=== PATIENT | female | born 1945 ===

== ENCOUNTER 2022-07-04 16:57 | Emergency (ER) | payer MEDICARE, OTHER ==
[~2022-07-04] VITALS: Ht 152.4 cm; Wt 63.5 kg
[2022-07-04] MEDS ORDERED: HYDHCL25 PO (17:20)
[2022-07-04] MEDS ORDERED: DILTIAZEM 12HR120 M9 PO (17:20)
[2022-07-04] MEDS ORDERED: ATOR10 PO (17:20)
[2022-07-04] MEDS ORDERED: IPRAT-ALBUT 0.5-3 ML INH (17:21)
[2022-07-04] MEDS ORDERED: ERGO50000 PO (17:22)
[2022-07-04] MEDS ORDERED: ALBU90OI INH ×2 (17:22→20:59)
[2022-07-04 18:36] LABS: BASOPHILS ABSOLUTE AUTO 0.04 K/mm3 (0.00-0.23); BASOPHILS PERCENT AUTO 1 % (0-2); EOSINOPHILS ABSOLUTE AUTO 0.27 K/mm3 (0.00-0.68); EOSINOPHILS PERCENT AUTO 4 % (0-6); Hematocrit 35.6 % (33.0-51.0); Hemoglobin 10.9 g/dL (11.5-16.0); IMMATURE GRAN ABSOLUTE AUTO 0.02 K/mm3 (0.00-0.10); IMMATURE GRAN PERCENT AUTO 0 % (0-1); LYMPHOCYTES ABSOLUTE AUTO 1.46 K/mm3 (0.84-5.20); LYMPHOCYTES PERCENT AUTO 19 % (21-46); MONOCYTES ABSOLUTE AUTO 1.07 K/mm3 (0.16-1.47); MONOCYTES PERCENT AUTO 14 % (4-13); Mean Corpuscular HGB 26.5 pg (26.0-34.0); Mean Corpuscular HGB Conc 30.6 g/dL (31.5-36.5); Mean Corpuscular Volume 87 fL (80-100); Mean Platelet Volume 9.1 fL (9.1-12.4); NEUTROPHILS PERCENT AUTO 62 % (41-73); Platelet Count 464 K/mm3 (150-400); RDW Coefficient Variation 15.3 % (11.7-14.2); RDW Standard Deviation 48.8 fL (35.1-46.3); Red Blood Cell Count 4.11 M/mm3 (3.80-5.20); White Blood Cell Count 7.56 K/mm3 (4.00-11.30)
[2022-07-04 19:35] LABS: Albumin, Blood 2.9 g/dL (3.4-5.0); Albumin/Globulin Ratio 0.6 (0.8-1.8); Bilirubin, Total 0.3 mg/dL (0.1-1.0); Bun/Creatinine Ratio 19.5 (12.0-20.0); Calcium, Blood 9.8 mg/dL (8.5-10.1); Creatinine, Blood 1.13 mg/dL (0.40-1.00); Globulin, Blood 4.7 g/dL (2.2-4.0); Potassium, Blood 4.2 mmol/L (3.5-5.5); Total Protein, Blood 7.6 g/dL (6.4-8.2)
[2022-07-04] MEDS ORDERED: Pepcid20 MG PO (20:59)
[2022-07-04] MEDS ORDERED: Vibramycin100 MG PO (20:59)
== END 2022-07-04 21:42 | disposition home or self-care (01) ==
LOC: ER 16:57
PROVIDERS: Emergency Medicine
DX: J44.1 Chronic obstructive pulmonary disease with (acute) exacerbation (principal); R07.9 Chest pain, unspecified; Z99.81 Dependence on supplemental oxygen; I12.9 Hypertensive chronic kidney disease with stage 1 through stage 4 chronic kidney disease, or unspecified chronic kidney disease; N18.9 Chronic kidney disease, unspecified; E78.5 Hyperlipidemia, unspecified; Z87.891 Personal history of nicotine dependence; Z88.6 Allergy status to analgesic agent; Z88.5 Allergy status to narcotic agent; Z79.899 Other long term (current) drug therapy
CPT/HCPCS: 71045; 80053; 83880; 84484; 85025; 93005; 93010; 94640; 94664; 99284-25; A9270

== ENCOUNTER 2023-03-25 17:33 | Inpatient (IN) | payer MEDICARE, OTHER ==
[~2023-03-25] VITALS: Ht 152.4 cm; Wt 64.8 kg
[~2023-03-25 17:33] MED LIST: ALBU90OI INH; ATOR10 PO; DILTIAZEM 12HR120 M9 PO; ERGO50000 PO; HYDHCL25 PO; IPRAT-ALBUT 0.5-3 ML INH; Pepcid20 MG PO; Vibramycin100 MG PO
[2023-03-25 19:46] VITALS: BP 90/74
[2023-03-25 20:58] LABS: BASOPHILS ABSOLUTE AUTO 0.05 K/mm3 (0.00-0.23); BASOPHILS PERCENT AUTO 1 % (0-2); EOSINOPHILS ABSOLUTE AUTO 0.28 K/mm3 (0.00-0.68); EOSINOPHILS PERCENT AUTO 4 % (0-6); Hemoglobin 9.7 g/dL (11.5-16.0); IMMATURE GRAN ABSOLUTE AUTO 0.03 K/mm3 (0.00-0.10); IMMATURE GRAN PERCENT AUTO 0 % (0-1); LYMPHOCYTES ABSOLUTE AUTO 1.23 K/mm3 (0.84-5.20); LYMPHOCYTES PERCENT AUTO 16 % (21-46); MONOCYTES ABSOLUTE AUTO 0.95 K/mm3 (0.16-1.47); MONOCYTES PERCENT AUTO 12 % (4-13); Mean Corpuscular HGB 26.4 pg (26.0-34.0); Mean Corpuscular HGB Conc 31.3 g/dL (31.5-36.5); Mean Corpuscular Volume 84 fL (80-100); Mean Platelet Volume 10.4 fL (9.1-12.4); NEUTROPHILS ABSOLUTE AUTO 5.18 K/mm3 (1.96-9.15); NEUTROPHILS PERCENT AUTO 67 % (41-73); Platelet Count 295 K/mm3 (150-400); RDW Coefficient Variation 13.4 % (11.7-14.2); Red Blood Cell Count 3.68 M/mm3 (3.80-5.20); White Blood Cell Count 7.72 K/mm3 (4.00-11.30)
[2023-03-25 21:19] LABS: Albumin, Blood 2.9 g/dL (3.4-5.0); Albumin/Globulin Ratio 0.7 (0.8-1.8); Bilirubin, Total 0.9 mg/dL (0.1-1.0); Bun/Creatinine Ratio 14.6 (12.0-20.0); Calcium, Blood 9.3 mg/dL (8.5-10.1); Creatinine, Blood 3.01 mg/dL (0.40-1.00); Globulin, Blood 4.3 g/dL (2.2-4.0); Potassium, Blood 3.6 mmol/L (3.5-5.5); Total Protein, Blood 7.2 g/dL (6.4-8.2)
[2023-03-25 21:31] LABS: Bicarbonate Venous 36.3 mmol/L (24.0-30.0); PCO2 Venous 50.5 mmHg (38-42); pH Blood Venous 7.48 (7.34-7.37)
[2023-03-25 21:58] VITALS: BP 109/46
[2023-03-26 04:56] VITALS: BP 140/74
[2023-03-26 06:14] LABS: Source, Urine Clean Catch
--- NOTE | 2023-03-26 06:18 | NUR ---
RECIEVED PATIENT ALERT, ORIENTED TO SELF, FROM MEDICAL FLOOR ONTO THE SCU DUE TO BEHAVIORAL ISSUES. PATIENT CONTINUED TO YELL "HELP" THROUGHOUT THE NIGHT, ALTHOUGH WOULD PAUSE TO ANSWER THE BEST SHE COULD FOR ADMISSION QUESTIONS. NO MEDICATION INFORMATION WAS OBTAINED. PATIENT PULLED OFF NC, DESATURATES TO LOW 70'S AND TAKES A FEW MINUTES TO REBOUND, ON 4.5L. PATIENT THEN GOT VERY AGITATED AND STARTED SWINGING AT STAFF, TRYING TO GET OUT OF BED, AND PULLING LINES. MD GAVE ORDER FOR 1 MG ATIVAN NOW, AND Q4 THEREAFTER, WITH SPECIFIC ORDERS OF OK TO ADMINISTER FIRST Q4 DOSE IF FIRST DID NOT GIVE RESULTS. 2MG ATIVAN ADMINISTERED OVER 2 HOURS. PATIENT THEN RESTED WELL FOR THE NEXT FEW HOURS. PATIENT HAD PURWICK BUT WAS RETAINING, BLADDER SCAN SHOWED 567, MD GAVE ORDER TO STAIGHT CATH ONCE WITH 650 OUT. WILL CONT TO MONITOR. SKIN RASH TO BILATERAL BREASTS AND GROIN, CLEANSED AND POWDER APPLIED. NO OTHER ISSUES TO REPORT.
[2023-03-26 06:21] LABS: Appearance, Urine Clear (Clear); Bilirubin, Urine Neg (Neg); Blood, Urine Neg (Neg); Glucose Qualitative, Urine Neg (Neg); Ketones, Urine Neg (Neg); Leukocyte Esterase, Urine Neg (Neg); Nitrite, Urine Neg (Neg); Protein, Urine 1+ (Neg); Urobilinogen, Urine NORM (Normal)
[2023-03-26] MEDS ORDERED: OXYC5 PO (06:37)
[2023-03-26 06:43] LABS: Color, Urine Pale Yellow (P-Yellow)
[2023-03-26 07:33] VITALS: BP 118/55
[2023-03-26] MEDS ORDERED: ADVAIR HFA 230-28 GM INH (07:40)
[2023-03-26] MEDS ORDERED: CARV6.25 PO (07:46)
[2023-03-26] MEDS ORDERED: BUSP5 PO (07:46)
[2023-03-26] MEDS ORDERED: ZYRTEC10 M2 PO (07:47)
[2023-03-26] MEDS ORDERED: MELATONIN5 M1 PO (07:48)
[2023-03-26] MEDS ORDERED: FERSU300 PO (07:48)
[2023-03-26] MEDS ORDERED: QUET25 PO (07:51)
[2023-03-26] MEDS ORDERED: Seroquel Xr50 MG PO (07:52)
[2023-03-26] MEDS ORDERED: GUAI600T33 PO (08:04)
[2023-03-26] MEDS ORDERED: ALMACONE SUSPE355 ML PO (08:04)
[2023-03-26] MEDS ORDERED: DULCOLAX400 MG/5 M PO (08:05)
[2023-03-26] MEDS ORDERED: LOPE2C PO (08:05)
[2023-03-26] MEDS ORDERED: CLOBET30L TOP (08:12)
[2023-03-26] MEDS ORDERED: KETO15TC TOP (08:12)
[2023-03-26] MEDS ORDERED: NYSTOP15 GM TOP (08:13)
[2023-03-26 15:23] VITALS: BP 119/76
--- NOTE | 2023-03-26 19:49 | NUR ---
SUMMARY- PT ALERT TO SELF AND FAMILY. ANSWERS SIMPLE QUEASIONS. HAS DECREASED STM AND FREQ CALLS OUT "HELP" LOUDLY, DURING ALL WAKING HOURS- PT SLEPT INTERMITTANTLY THROUGHOUT THE DAY. AWAKENS FOR MEALS AND EATS FOOD, IS A FEEDER. SWALLOW INTACT. REFUSED FLUIDS UNTIL ABOUT NOON, AGREED TO DRINK SOME ICE TEA. STARTED IVF PT APPEARED DRY AND HAVING NO PO INTAKE. NS AT 50ML STARTED. PHYSICAL THERAPY DEFERRED TX TODAY PT'S MENTATION WOULD NOT ALLOW FOR HER TO FOLLOW DIRECTION IN THERAPY. PT DID NOT VOID ALL SHIFT. BLADDER SCANNED [address] 1930 FOR 350ML. PT MEDICATED WITH SEROQUIL ONCE THIS SHIFT FOR PERSISTANT CALLING OUT AND AGITATION. ALLOW PT TO REST A FEW HOURS THIS AFTERNOON- DAUGHTER AND GRAND DAUGHTER IN THIS MORNING, WAS ABLE TO SPEAK WITH DR PUENTE ABOUT PLAN OF CARE.
[2023-03-26 20:03] VITALS: BP 114/61
[2023-03-27 02:25] VITALS: BP 124/102
--- NOTE | 2023-03-27 06:18 | NUR ---
SHIFT SUMMARY: A&O TO SELF. CALLS OUT HELP FREQUENTLY, PAT DOES NOT KNOW WHY. ANSWERS SIMPLE QUESTIONS THEN BACK TO CALLING OUT. CURRENTLY ON 50MLS/HR NS. PATIENT HAD ONLY ONE ORDER FOR 1000ML. RETAINING URINE BLADDER SCAN 305ML, ORDER TO STRAIGHT CATH MORE THAN 250ML. 300ML YELLOW URINE BY STRAIGHT CATH, TOLERATED WELL. NYSTATIN POWDER TO GROIN AND BREAST. LOTION TO BILAT FEET. REPOSITIONED EVERY 2 HOURS. TRAMADOL GIVEN SCHEDULED LAST NIGHT WHICH WAS HELPFUL IN PROVIDING REST. CALL LIGHT WITHIN REACH.
[2023-03-27 06:22] LABS: Albumin, Blood 2.3 g/dL (3.4-5.0); Anion Gap 4 mmol/L (6-16); Blood Urea Nitrogen 46 mg/dL (8-24); Bun/Creatinine Ratio 18.4 (12.0-20.0); CO2, Blood 36 mmol/L (21-32); Calcium, Blood 8.6 mg/dL (8.5-10.1); Chloride, Blood 101 mmol/L (98-108); Glomerular Filtration Rate 19 (60-); Glucose, Blood 131 mg/dL (70-99); Phosphorus, Blood 3.8 mg/dL (2.5-4.9); Potassium, Blood 3.3 mmol/L (3.5-5.5); Sodium, Blood 141 mmol/L (136-145)
[2023-03-27 07:16] VITALS: BP 126/112
--- NOTE | 2023-03-27 14:36 | NUR ---
Attempted to visit with Medina this afternoon. She is either yelling out for "help" which staff say is her baseline or she appears to be sleeping with her eyes closed. No family currently in the room. Reviewed EMR notes as well as paperwork sent from [facility]. Unable to locate a POLST form. Paperwork from [facility] does not specific a choice in the code status section. PCP is: Marito Oconnell phone # [phone]. Contacted [facility] at [phone]. Spoke with Charisse who states they have a POLST form on file and they will fax it to the PC nurses office. Received Medina's POLST form. It was signed by Medina, no date on POLST. POLST is for full code full treatment. PC to pt's granddaughter, Kathy, who is listed at pt's NOK. Kathy states that she believes her grandmother had completed her POLST within the last year or so and that the full code and full treatment is her continued desire. Copy of Medina's POLST form sent to medical records and a copy placed on pt's chart. JESSICA is currently working with family looking for options for placement in the [facility]. Kathy thanked this property underwriter for the call and reports that her sister and mother visited her grandmother earlier and that they had updated her on Medina's condition. PC to continue to follow for advanced care planning prn.
[2023-03-27 15:42] VITALS: BP 129/65
--- NOTE | 2023-03-27 18:25 | NUR ---
SHIFT SUMMARY MS FLYNN HAS BEEN CALLING OUT HELP A LOT TODAY. SHE IS ABLE TO ANSWER QUESTIONS WHEN ASKED AND SPEAK APPROPRIATELY, SOMETIMES CALLS OUT HELP WHILE STAFF ARE IN THE ROOM DELIVERING CARE. SHE CALMED A LOT WHEN HER FAMILY WAS VISITING. SHE WAS ABLE TO URINATE TODAY, MOST OF THE THE SHE WAS ABLE TO AMBULATE IN TO THE BATHROOM WITH 1 PERSON ASSIST AND FWW, MOSTLY CONTINENT OF URINE. SHE HAS BEEN EATNG AND DRINKING, TOOK MEDS WITH [facility]. NO CALLS FROM INSPECTING MACHINE ADJUSTER - SB 40-50S WITH PVCS. BED LOW, CALL LIGHT IN REACH, BED ALARM ON.
[2023-03-27 20:49] VITALS: BP 130/76
[2023-03-28 02:11] VITALS: BP 118/71
--- NOTE | 2023-03-28 07:28 | NUR ---
SHIFT SUMMARY. A&O X 2, CALLS OUT FOR HELP. CONT OF BOWEL AND BLADDER, VOIDING IN BATHROOM. AMBULATES WITH 1 ASSIST AND GAIT BELT. NO COMPLAINT OF CHEST PAIN OR DISCOMFORT. EMESIS X 2 THIS EVENING, NEW ORDER FOR COMPAZINE AND CONTINUE ZOFRAN. ORDERS ALSO RECEIVED FOR BOWEL CARE NO BM SINCE 03/25/23. COMPAZINE GIVEN THIS AM WHICH WAS EFFECTIVE. CALL LIGHT WITHIN REACH.
[2023-03-28 08:25] LABS: Albumin, Blood 2.5 g/dL (3.4-5.0); Anion Gap 6 mmol/L (6-16); Blood Urea Nitrogen 38 mg/dL (8-24); Bun/Creatinine Ratio 16.3 (12.0-20.0); CO2, Blood 36 mmol/L (21-32); Calcium, Blood 8.6 mg/dL (8.5-10.1); Chloride, Blood 98 mmol/L (98-108); Creatinine, Blood 2.33 mg/dL (0.40-1.00); Glomerular Filtration Rate 21 (60-); Glucose, Blood 111 mg/dL (70-99); Phosphorus, Blood 2.5 mg/dL (2.5-4.9); Potassium, Blood 3.4 mmol/L (3.5-5.5); Sodium, Blood 140 mmol/L (136-145)
--- NOTE | 2023-03-28 16:46 | NUR ---
SHIFT SUMMARY PATIENT CONTINUES TO YELL OUT "HELP" EVEN WITH STAFF IN THE ROOM AT TIMES. WHEN QUESTIONED, PATIENT DOES NOT USUALLY HAVE A NEED. PATIENT STATES SHE IS ANXIOUS AT TIMES. PATIENT HAD AN EPISODE OF NAUSEA AT LUNCH TIME. PATIENT MEDICATED WITH ZOFRAN WITH GOOD RESPONSE. PATIENT WORKED WITH PT TODAY. PT REPORTS THAT PATIENT IS MORE INTERACTIVE TODAY THAN PREVIOUS. NO FAMILY IN TO SEE PATIENT TODAY. PATIENT CONTINUES TO HAVE RASH UNDER BREASTS. POWDER APPLIED TO AREA. PATIENT CONTINUES TO BE ON OXYGEN. PATIENT USES OXYGEN AT HOME.
[2023-03-28 20:19] VITALS: BP 103/59
[2023-03-29 03:06] VITALS: BP 116/59
--- NOTE | 2023-03-29 05:07 | NUR ---
PATIENT WAS AGITATED AT TIMES THROUGH THE NIGHT, ORIENTED TO SELF AND FAMILY, YELLS "HELP" EVEN WHEN CARE PROVIDERS ARE AT BEDSIDE. STATES SHE IS NOT AWARE WHEN DOING SO. NO N/V, PAIN TREATED PER MAR. NO BM SINCE ADMISSIN, BC MEDS ADMINISTERD. REFUSED HEP INJ AND RT CARE. LUNGS TIGHT AND DIM. WILL CONT TO MONITOR.
--- NOTE | 2023-03-29 12:17 | NUR ---
REFUSING CARE PT IS REFUSING BLOOD DRAWS & BG CHECKS. ALTHOUGH IS TAKING MEDS.
[2023-03-29 15:19] VITALS: BP 117/57
--- NOTE | 2023-03-29 18:41 | NUR ---
A&O X 1. VSS. YELLS OUT FOR HELP & FOR RAFL ALMOST CONSTANTLY. STAFF CAN BE IN THE ROOM HELPING HER WITH ADL'S AND SHE WILL YELL FOR HELP. MEDICATED FOR C/O PAIN AND NAUSEA PER EMAR. USES FWW W/1 PERSON STDBY ASSIST FOR RESTROOM USE. IS ON O2 & CONT BIOX, SATS REMAIN >90%. WILL OCCASIONALLY SIT IN CHAIR AT BEDSIDE. IS COOPERATIVE WITH ALL CARE. PLAN IS FOR PLACEMENT UPON DC.
[2023-03-29 19:53] VITALS: BP 122/82
--- NOTE | 2023-03-30 04:08 | NUR ---
SHIFT UNREMARKABLE. PT TOOK 2100 MEDICATIONS WITHOUT DIFFICULTY AND HAS SLEPT THROUGH MUCH OF REMAINDER OF SHIFT. PT HAS TOURETTES AND WILL OFTEN SHOUT OUT FOR HELP WHEN AWAKE BUT IS ABLE TO MAKE NEEDS KNOWN ADEQUATELY. COOPERATIVE WITH CARE. SBA WITH FWW TO BATHROOM. SATTING WELL ON 3 L O2 VIA NC. CONTINUOUS PULSE OX IN PLACE. NO BM THIS SHIFT. NO NAUSEA REPORTED THIS SHIFT. PAIN WELL MANAGED VIA 2100 SCHEDULED ULTRAM PT HAS SLEPT THROUGH MUCH OF SHIFT SINCE THEN. BED ALARM IS ON AND REMOTE MONITORING CAMERA IS IN PLACE. BED LOCKED IN LOWEST POSITION. CALL LIGHT LEFT WITHIN REACH.
[2023-03-30 04:34] VITALS: BP 128/75
[2023-03-30 07:44] VITALS: BP 128/69
--- NOTE | 2023-03-30 09:00 | NUR ---
pt sitting up in chair for breakfast, calling out help, even with staff in room and speaking to her, a/ox2-3, cooperative with care, follows commands well, denies pain but says ow when she moved, tramadol scheduled, lungs are dim t/o, resp even and unlabored, no cough noted, hrr, tele in place running sr per monitor, see strip, trace edema noted to b/l le, ppp faint, cap refill <3sec, vs stable,afebrile, piv to lfa site is clear and patent, btx4, abd flat soft nontender, voids without diff, skin c/w/d, catherine moya, call light in reach, assisted her to bed with sba, call light in reach.
[2023-03-30 17:14] VITALS: BP 134/96
--- NOTE | 2023-03-30 18:32 | NUR ---
pt calls out constantly for help, even when speaking to her mid sentence she will yell help, she said she is trying to keep it quieter, but can't, has been medicated for pain which she slept for a bit after, sat up in a chair for meals, no further changes this shift. call light in reach.
[2023-03-31 02:41] VITALS: BP 156/60
--- NOTE | 2023-03-31 05:02 | NUR ---
PT REFUSED MORNING LAB DRAW. LAB PERSONNEL WILL TRY AGAIN AFTER BREAKFAST.
--- NOTE | 2023-03-31 05:57 | NUR ---
SHIFT SUMMARY PT CONTINUES TO BE ON CAMERA MONITORING. PT MOVING AROUND MOST OF THE NIGHT FROM THE BED TO THE CHAIR. PT HAS BED/CHAIR ALARMS ON FOR SAFETY. PT YELLS OUT "HELP", "JUNAID", AND "RALF" QUITE OFTEN. PT IS CAPABLE OF ANSWERING QUESTIONS, BUT IS SLOW TO RESPOND. PT REFUSED SOME OF HER EVENING MEDICATIONS LAST NIGHT AND REFUSED HER BLOOD DRAW THIS AM. PT IS ABLE TO GET UP TO THE BATHROOM WITH A WALKER AND STANDBY ASSIST. PT ON 3L O2.
[2023-03-31 07:58] VITALS: BP 127/61
--- NOTE | 2023-03-31 16:53 | NUR ---
SHIFT SUMMARY NO ACUTE CHANGES THIS SHIFT. PT CONTINUES TO YELL OUT "RALF, JUNAID, AND HELP" EVEN IF STAFF ARE IN THE ROOM. SHE WAS COOPERATIVE THIS SHIFT BUT STILL REFUSING BLOOD SUGAR CHECKS AND BLOOD DRAWS. SHE WAS MEDICATED FOR PAIN THIS SHIFT, SEE EMAR. PT HAS REMAINED ASLEEP MOST OF THE AFTERNOON. SHE ALSO ATE SOME OF HER LUNCH, AFTER REFUSING HER BREAKFAST. CALL LIGHT WITHIN REACH, BED IN THE LOWEST POSITION. WILL REPORT TO ONCOMING NURSE.
[2023-03-31 17:32] VITALS: BP 130/93
[2023-04-01 08:36] VITALS: BP 149/137
[2023-04-01 17:01] VITALS: BP 145/76
--- NOTE | 2023-04-01 17:52 | NUR ---
END OF SHIFT SUMMARY: PATIENT CONTINUED TO CALL OUT FREQUENTLY AND CONSISTENTLY THROUGHOUT THE SHIFT. WHEN THE PATIENT WAS ASKED A QUESTION, SHE WAS ABLE TO TYPICALLY STOP CALLING OUT AND ANSWER THE QUESTION. PATIENT REPORTS PAIN AND CONSTIPATION. MEDICATED PER PRNS, ENCOURAGED FLUIDS, AND MEDICATED PER NEW AND EXISTING ORDERS. PATIENT ABLE TO HAVE SMALL, ROUND, HARD PELLETS. CONTINUES TO REPORT THAT THERE IS MORE TO COME OUT. ABDOMEN IS SOFT AND TENDER. PATIENT IS STEADY ON HER FEET WITH WALKER. PATIENT WILL CALL APPROPRIATELY FROM THE BATHROOM AT TIMES. PATIENT IS COOPERATIVE WITH CARE THAT DOES NOT REQUIRE A NEEDLE STICK.
[2023-04-02] MEDS ORDERED: MIRALAX17 GM PO (12:39)
[2023-04-02] MEDS ORDERED: TRAM50 PO (12:40)
[2023-04-02] MEDS ORDERED: Acetaminophen650 M1 PO (12:40)
[2023-04-02] MEDS ORDERED: QUET25 PO (12:40)
[2023-04-02] MEDS ORDERED: Senna-Extra17.2 MG PO (12:41)
[2023-04-02] MEDS ORDERED: DOCU100 PO (12:41)
--- NOTE | 2023-04-02 14:20 | NUR ---
DISCHARGE SUMMARY PT AxOx3 WITH INTERM CONFUSION AND SOME DIFFICULTY WITH COMMUNICATION AT TIMES. PT IS DISCHARGING TO GRAND DAUGHTER'S HOME TODAY, WITH PLANS TO FACILITATE PLACEMENT AT NEW LTC/[facility]ORY CARE FACILITY SOON POSSIBLE. PTS MEDS WERE FAXED TO [facility], DC INSTRUCTIONS WERE DISCUSSED WITH PATIENT AND FAMILY INCLUDING FOLLOW UP APPOINTMENTS, PT EDUCATION AND DC MED LIST. PORTABLE O2 DELIEVERED FOR TRANSPORT. GRAND DAUGHTER VERBALIZES UNDERSTANDING AND DENIES FURTHER QUESTIONS AT THIS TIME. PT SAFELY ESCORTED OUT VIA WC WITH FAMILY AND DIGITAL COURT REPORTER.
== END 2023-04-02 14:12 | disposition home or self-care (01) | DRG 682 ==
LOC: MEDS 17:33 → ENPENDDIS 04-02 13:15 → MEDS 04-02 14:12
PROVIDERS: Nurse Practitioner Acute Care; ADMIT Internal Medicine
DX: N17.9 Acute kidney failure, unspecified (principal); G92.8 Other toxic encephalopathy; J96.11 Chronic respiratory failure with hypoxia; I13.0 Hypertensive heart and chronic kidney disease with heart failure and stage 1 through stage 4 chronic kidney disease, or unspecified chronic kidney disease; J44.1 Chronic obstructive pulmonary disease with (acute) exacerbation; I69.354 Hemiplegia and hemiparesis following cerebral infarction affecting left non-dominant side; I48.20 Chronic atrial fibrillation, unspecified; E11.22 Type 2 diabetes mellitus with diabetic chronic kidney disease; N18.30 Chronic kidney disease, stage 3 unspecified; I50.9 Heart failure, unspecified; J44.9 Chronic obstructive pulmonary disease, unspecified; E78.5 Hyperlipidemia, unspecified; F03.90 Unspecified dementia, unspecified severity, without behavioral disturbance, psychotic disturbance, mood disturbance, and anxiety; F32.A Depression, unspecified; B37.2 Candidiasis of skin and nail; E87.6 Hypokalemia; K59.00 Constipation, unspecified; R33.9 Retention of urine, unspecified; G89.29 Other chronic pain; E86.0 Dehydration; Z99.81 Dependence on supplemental oxygen; Z88.4 Allergy status to anesthetic agent; Z88.5 Allergy status to narcotic agent; Z88.8 Allergy status to other drugs, medicaments and biological substances; Z87.891 Personal history of nicotine dependence; Z79.4 Long term (current) use of insulin; Z79.891 Long term (current) use of opiate analgesic
CPT/HCPCS: 36415; 71045; 80053; 80069; 82803; 82947; 83880; 84145; 84484; 85025; 94640; 94664; 94760; 94762; 96372; 96374; 96375; 96376; 97110; 97116; 97162; 97165; 97530; 97535; A9270; G0378; J0456; J0780; J1644; J2060; J2405; J2920; J3480; J7030; J7050